=== PATIENT | female | born 2000 | race Caucasian/White ===

== ENCOUNTER 2023-07-02 14:06 | Emergency (ER) | payer OTHER ==
[~2023-07-02] VITALS: Ht 167.6 cm; Wt 63.5 kg
[2023-07-02 17:06] LABS: HEMATOCRIT 40.6 % (36.0-45.00); HEMOGLOBIN 13.8 g/dL (12.0-15.00); MEAN CELL VOLUME 92.4 fL (80.00-100.00); MEAN CORPUSCULAR HEMOGLOBIN 31.3 pg (27.00-32.0); MEAN CORPUSCULAR HGB CONC 33.9 g/dl (32.0-36.0); PLATELET COUNT 222 K/uL (150-450); RED CELL DISTRIBUTION WIDTH 12.4 % (11.5-14.5)
[2023-07-02 17:17] LABS: URINE APPEARANCE Cloudy; URINE BILIRRUBIN Negative (NEGATIVE); URINE BLOOD Moderate; URINE COLOR Yellow; URINE GLUCOSE Negative (NEGATIVE); URINE LEUKOCYTE Large; URINE NITRATE Positive; URINE PROTEIN Negative (NEGATIVE)
[2023-07-02 17:19] LABS: URINE EPITHELIAL CELLS 10.2 uL (0.0-38.8); URINE RBC 70.5 uL (0.0-20.8); URINE WBC 738.7 uL (0.0-23.2)
[2023-07-02 17:30] LABS: URINE BACTERIA > 9821.5 uL (0.0-1933)
== END 2023-07-02 17:52 | disposition home or self-care (01) ==
LOC: ER 14:06
PROVIDERS: General Practice
DX: R30.0 Dysuria (principal)
CPT/HCPCS: 36415; 96372; 99284; J0696